=== PATIENT | female | born 1955 | race American Indian/Alaskan Native ===

== ENCOUNTER 2019-10-14 09:50 | Inpatient (IN) | payer OTHER ==
[2019-10-14] MEDS ORDERED: IPRATROPIUM/ALBUTEROL SULFATE 3 ML AMPUL.NEB IH ONE ×4 (09:57→11:28)
--- NOTE | 2019-10-14 11:11 | XRay Report ---
CHEST 2 VIEWS 1045 INDICATION / CLINICAL INFORMATION: SOB, COPD COMPARISON: 01/01/2012 FINDINGS: SUPPORT DEVICES: None. HEART / MEDIASTINUM: No significant abnormality. LUNGS / PLEURA: A band of moderate atelectatic change and possible pneumonitis is seen in the right m iddle lobe. Left lung field is clear. No pleural effusions are noted. No pneumothorax. ADDITIONAL FINDINGS: No significant additional findings. IMPRESSION: Possible right middle lobe pneumonitis. Recommend clinical correlation and follow-up. Signer Name: Pedro Bradley MD Signed: 10/14/2019 11:06 AM Workstation Name: [id number]
[2019-10-14] MEDS ORDERED: methylPREDNISolone Sod Succinate 125 MG/2 ML INJ IV ONE (11:29)
[2019-10-14] MEDS ORDERED: MAGNESIUM SULFATE 2 GM/50 ML BAG IV ONE (11:29)
[2019-10-14 12:11] LABS: Basophils # (Auto) 0.1 K/mm3 (0.0-0.1); Basophils % (Auto) 0.6 % (0.0-1.8); Eosinophils # (Auto) 0.5 K/mm3 (0.0-0.4); Eosinophils % (Auto) 4.5 % (0.0-4.3); Hemoglobin 13.9 gm/dl (10.1-14.3); Lymphocytes # (Auto) 2.2 K/mm3 (1.2-5.4); Lymphocytes % (Auto) 20.4 % (13.4-35.0); Mean Corpuscular HGB Conc 32 % (30-34); Mean Corpuscular Volume 88 fl (79-97); Monocytes # (Auto) 0.8 K/mm3 (0.0-0.8); Monocytes % (Auto) 7.7 % (0.0-7.3); Platelet Count 243 K/mm3 (140-440); Red Cell Distribution Width 14.9 % (13.2-15.2)
--- NOTE | 2019-10-14 12:13 | Emergency Department Report ---
ED Shortness of Breath HPI - General Chief Complaint: Dyspnea/Respdistress Stated Complaint: SOB Time Seen by Provider: 10/14/19 11:23 Source: patient Mode of arrival: Wheelchair Limitations: No Limitations - History of Present Illness Initial Comments: This is a 64-year-old female with a history of COPD. She reports intermittent wheezing for the last week. She states her home neb machine has not been adequate. She is not taking prednisone. She cannot state that she is still on an antibiotic. However she was admitted she states at [facility] the beginning of August for a pneumonia and was treated with antibiotics at that time. She states that her cough is nonproductive. She does not report fever or chills. She states her chest is sore when she coughs only. She denies hemoptysis. She denies any obvious leg pain or swelling. She has not recently travelled. MD Complaint: shortness of breath, "asthma attack" -: week(s) Severity: moderate, severe Quality: dull Consistency: intermittent Improves With: nothing Worsens With: other (Only upon cough) Known History Of: COPD Associated Symptoms: denies other symptoms, chest pain Treatments Prior to Arrival: bronchodilator - Related Data Home Medications Medication Instructions Recorded Confirmed Last Taken ALBUTEROL NEB's 3 ml INHALATION QID 06/14/18 06/14/18 Unknown Acetaminophen with Codeine 1 tab PO Q4H PRN MDD 6 06/14/18 06/14/18 Unknown Benzonatate 2 cap PO TID PRN 06/14/18 06/14/18 Unknown Breo Ellipta 100-25 Mcg INH 25 mcg INHALATION DAILY 06/14/18 06/14/18 Unknown Fluticasone 2 sprays INTRANASAL BID 06/14/18 06/14/18 Unknown Gabapentin 1 cap PO BID 06/14/18 06/15/18 06/13/18 Humalog 5 units SUB-Q AC 06/14/18 06/14/18 Unknown Prednisone 1 tab PO BID 06/14/18 06/14/18 Unknown ProAir HFA Inhaler 1 puff INHALATION PRN PRN 06/14/18 06/14/18 Unknown Simvastatin 1 tab PO HS 06/14/18 06/15/18 06/13/18 Temazepam 1 cap PO HS PRN 06/14/18 06/15/18 06/13/18 Vitamin B12 1 tab PO DAILY 06/14/18 06/14/18 Unknown Vitamin C 1 tab PO DAILY 06/14/18 06/14/18 Unknown Vitamin D (Nf) 1 tab PO DAILY 06/14/18 06/14/18 Unknown amLODIPine 1 tab PO DAILY 06/14/18 06/15/18 06/13/18 hydroCHLOROthiazide 1 tab PO DAILY 06/14/18 06/14/18 06/14/18 lisinopriL [Zestril TAB] 1 tab PO DAILY 06/14/18 06/15/18 06/13/18 metFORMIN 1 tab PO BID 06/14/18 06/15/18 06/13/18 valACYclovir 1 tab PO Q12H 06/14/18 06/15/18 06/13/18 Melatonin 10 mg PO DAILY 06/15/18 06/15/18 06/13/18 Montelukast 10 mg PO HS 06/15/18 06/15/18 06/13/18 Pepcid 20 mg PO BID 06/15/18 06/15/18 06/13/18 Allergies Allergy/AdvReac Type Severity Reaction Status Date / Time No Known Allergies Allergy Verified 06/15/18 07:39 ED Review of Systems ROS: Stated complaint: SOB Other details as noted in HPI Constitutional: denies: chills, fever Eyes: denies: eye pain, eye discharge, vision change ENT: denies: ear pain, throat pain Respiratory: cough, shortness of breath, wheezing Cardiovascular: denies: chest pain, palpitations Endocrine: no symptoms reported Gastrointestinal: denies: abdominal pain, nausea, diarrhea Genitourinary: denies: urgency, dysuria, discharge Musculoskeletal: denies: back pain, joint swelling, arthralgia Skin: denies: rash, lesions Neurological: denies: headache, weakness, paresthesias Psychiatric: denies: anxiety, depression Hematological/Lymphatic: denies: easy bleeding, easy bruising ED Past Medical Hx - Past Medical History Previous Medical History?: Yes Hx Hypertension: Yes Hx Diabetes: Yes Hx Arthritis: Yes Hx Asthma: Yes Hx COPD: Yes - Social History Smoking Status: Former Smoker - Medications Home Medications: Home Medications Medication Instructions Recorded Confirmed Last Taken Type ALBUTEROL NEB's 3 ml INHALATION QID 06/14/18 06/14/18 Unknown History Acetaminophen with Codeine 1 tab PO Q4H PRN MDD 6 06/14/18 06/14/18 Unknown History Benzonatate 2 cap PO TID PRN 06/14/18 06/14/18 Unknown History Breo Ellipta 100-25 Mcg INH 25 mcg INHALATION DAILY 06/14/18 06/14/18 Unknown History Fluticasone 2 sprays INTRANASAL BID 06/14/18 06/14/18 Unknown History Gabapentin 1 cap PO BID 06/14/18 06/15/18 06/13/18 History Humalog 5 units SUB-Q AC 06/14/18 06/14/18 Unknown History Prednisone 1 tab PO BID 06/14/18 06/14/18 Unknown History ProAir HFA Inhaler 1 puff INHALATION PRN PRN 06/14/18 06/14/18 Unknown History Simvastatin 1 tab PO HS 06/14/18 06/15/18 06/13/18 History Temazepam 1 cap PO HS PRN 06/14/18 06/15/18 06/13/18 History Vitamin B12 1 tab PO DAILY 06/14/18 06/14/18 Unknown History Vitamin C 1 tab PO DAILY 06/14/18 06/14/18 Unknown History Vitamin D (Nf) 1 tab PO DAILY 06/14/18 06/14/18 Unknown History amLODIPine 1 tab PO DAILY 06/14/18 06/15/18 06/13/18 History hydroCHLOROthiazide 1 tab PO DAILY 06/14/18 06/14/18 06/14/18 History lisinopriL [Zestril TAB] 1 tab PO DAILY 06/14/18 06/15/18 06/13/18 History metFORMIN 1 tab PO BID 06/14/18 06/15/18 06/13/18 History valACYclovir 1 tab PO Q12H 06/14/18 06/15/18 06/13/18 History Melatonin 10 mg PO DAILY 06/15/18 06/15/18 06/13/18 History Montelukast 10 mg PO HS 06/15/18 06/15/18 06/13/18 History Pepcid 20 mg PO BID 06/15/18 06/15/18 06/13/18 History ED Physical Exam - General Limitations: Physical Limitation General appearance: alert, in no apparent distress - Head Head exam: Present: atraumatic, normocephalic - Eye Eye exam: Present: normal appearance. Absent: scleral icterus - ENT ENT exam: Present: mucous membranes moist - Neck Neck exam: Present: normal inspection. Absent: tenderness, meningismus - Respiratory Respiratory exam: Present: wheezes (Bilateral, noisy rhonchi). Absent: normal lung sounds bilaterally, respiratory distress - Cardiovascular Cardiovascular Exam: Present: regular rate, normal rhythm. Absent: systolic murmur, diastolic murmur, rubs, gallop - GI/Abdominal GI/Abdominal exam: Present: soft, normal bowel sounds. Absent: distended, tenderness, guarding, rebound - Extremities Exam Extremities exam: Present: normal inspection, normal capillary refill. Absent: pedal edema, calf tenderness - Back Exam Back exam: Present: normal inspection - Neurological Exam Neurological exam: Present: alert, oriented X3, CN II-XII intact. Absent: motor sensory deficit - Psychiatric Psychiatric exam: Present: normal affect, anxious - Skin Skin exam: Present: warm, dry, intact, normal color. Absent: rash ED Course Vital Signs 10/14/19 10/14/19 09:53 11:56 Temperature 98.3 F Pulse Rate 76 74 Respiratory 20 26 H Rate Blood Pressure 151/81 Blood Pressure 136/88 [Left] O2 Sat by Pulse 93 96 Oximetry - Reevaluation(s) Reevaluation #1: Chest x-ray shows right middle lobe partial atelectasis cannot exclude pneumonitis. A CT of the chest will be obtained if the patient has reasonable renal function. She is given additional nebs, Solu-Medrol and magnesium. Check labs and monitor progress. 10/14/19 12:13 Reevaluation #2: Patient had a pulse ox of 93% on 2 L. She has substantial persistent wheezing. Discussed with hospitalist. She will be admitted to observation status. 10/14/19 13:24 - EJ/Peripheral Line Neck L Time Out Performed: No Indications: nurses unable to establis Skin Cleansed in Sterile Fashion: Yes Size: 20 Dressing Placed: Tegaderm, tape Patient Tolerated Procedure: well ED Medical Decision Making - Lab Data Result diagrams: 10/14/19 11:48 10/14/19 11:48 Laboratory Results - last 24 hr 10/14/19 10/14/19 10/14/19 11:48 11:48 11:48 WBC 10.7 RBC 4.90 Hgb 13.9 Hct 43.0 H MCV 88 MCH 29 MCHC 32 RDW 14.9 Plt Count 243 Lymph % (Auto) 20.4 Barry % (Auto) 7.7 H Eos % (Auto) 4.5 H Baso % (Auto) 0.6 Lymph # 2.2 Barry # 0.8 Eos # 0.5 H Baso # 0.1 Seg Neutrophils % 66.8 Seg Neutrophils # 7.2 PT 13.0 INR 0.97 APTT 26.0 Sodium 139 Potassium 3.9 Chloride 99.5 Carbon Dioxide 24 Anion Gap 19 BUN 22 H Creatinine 1.0 Estimated GFR > 60 BUN/Creatinine Ratio 22 Glucose 134 H Lactic Acid Calcium 9.9 Total Bilirubin 0.70 Direct Bilirubin < 0.2 AST 27 ALT 25 Alkaline Phosphatase 56 Troponin T < 0.010 NT-Pro-B Natriuret Pep 123.0 Total Protein 7.7 Albumin 4.8 Albumin/Globulin Ratio 1.7 10/14/19 11:48 WBC RBC Hgb Hct MCV MCH MCHC RDW Plt Count Lymph % (Auto) Barry % (Auto) Eos % (Auto) Baso % (Auto) Lymph # Barry # Eos # Baso # Seg Neutrophils % Seg Neutrophils # PT INR APTT Sodium Potassium Chloride Carbon Dioxide Anion Gap BUN Creatinine Estimated GFR BUN/Creatinine Ratio Glucose Lactic Acid 1.50 Calcium Total Bilirubin Direct Bilirubin AST ALT Alkaline Phosphatase Troponin T NT-Pro-B Natriuret Pep Total Protein Albumin Albumin/Globulin Ratio - EKG Data -: EKG Interpreted by Nd EKG shows normal: sinus rhythm, axis, intervals, QRS complexes, ST-T waves Rate: normal - EKG Data Interpretation: no acute changes - Radiology Data Radiology results: report reviewed (RML atelectasis), image reviewed Critical care attestation.: If time is entered above; I have spent that time in minutes in the direct care of this critically ill patient, excluding procedure time. ED Disposition Clinical Impression: COPD exacerbation, Hypoxia, Atelectasis of right lung Disposition: OP ADMIT IP TO THIS HOSP Is pt being admited?: Yes Does the pt Need Aspirin: Yes Condition: Stable Instructions: Chronic Obstructive Pulmonary Disease (ED) Referrals: PRIMARY CARE, [Primary Care Provider] - 3-5 Days Time of Disposition: 13:01
[2019-10-14 12:20] LABS: INR 0.97 (0.87-1.13)
[2019-10-14 12:27] LABS: Alanine Aminotransferase 25 units/L (7-56); Albumin 4.8 g/dL (3.9-5); BUN/Creatinine Ratio 22; Blood Urea Nitrogen 22 mg/dL (7-17); Calcium 9.9 mg/dL (8.4-10.2); Hemolysis Index 2
[2019-10-14 12:33] LABS: Bilirubin,Direct < 0.2 mg/dL (0-0.2)
[2019-10-14] MEDS ORDERED: ASPIRIN 325 MG TAB PO ONE (13:04)
--- NOTE | 2019-10-14 13:47 | Cat Scan Report ---
CT CHEST WITHOUT CONTRAST INDICATION / CLINICAL INFORMATION: Right middle lobe atelectasis consider pneumonia. TECHNIQUE: Axial CT images were obtained through the chest without contrast. All CT scans at this location are p erformed using CT dose reduction for ALARA by means of automated exposure control. COMPARISON: None available. FINDINGS: Complex thyroid mass most consistent with thyroid goiter HEART: No significant abnormality. THORACIC AORTA: No significant abnormality. MEDIASTINUM and ELANA: No significant abnormality. LUNGS: Airspace consolidation with volume loss right middle lobe. Bronchiectasis present within the r ight middle lobe separate from the atelectasis consolidation. Bilateral lower lobe bronchiectasis is present PLEURA: No significant pleural effusion. No pneumothorax. ADDITIONAL FINDINGS: None. UPPER ABDOMEN: No significant abnormality. SKELETAL SYSTEM: Extensive degenerative changes thoracic spine IMPRESSION: 1. Right middle lobe atelectasis-consolidation, endobronchial obstructing lesion should be considered 2. Bronchiectasis right middle lobe and both lower lobes 3. Thyroid goiter 4. Extensive degenerative changes thoracic spine Signer Name: Kishoer Mauricio MD Signed: 10/14/2019 1:43 PM Workstation Name: [id number]
--- NOTE | 2019-10-14 16:08 | History and Physical Report ---
History of Present Illness Date of examination: 10/14/19 Date of admission: 10/14/19 13:24 Chief complaint: Increasing shortness of breath for 1 week History of present illness: 64-year-old female with history of insulin-dependent diabetes, hypertension, hyperlipidemia and COPD comes in for increasing shortness of breath and wheezing for the last 1 week. Not responding to nebulizer treatments at home. Not on any steroids at home and not on any antibiotics at home cough productive of mucoid sputum. Patient was then [facility] at the beginning of J anuary and was discharged. No fever. Intermittent shortness of breath and wheezing. No exacerbating or relieving factors. No chest pain. No recent travel. Past Medical History Previous Medical History?: Yes Hypertension: Yes Diabetes: Yes Arthritis: Yes Asthma: Yes COPD: Yes Surgical history No Family history Htn Social History Smoking Status: Former Smoker - Medications Home Medications: Home Medications Medication Instructions Recorded Confirmed Last Taken Type ALBUTEROL NEB's 3 ml INHALATION QID 06/14/18 06/14/18 Unknown History Acetaminophen with Codeine 1 tab PO Q4H PRN MDD 6 06/14/18 06/14/18 Unknown History Benzonatate 2 cap PO TID PRN 06/14/18 06/14/18 Unknown History Breo Ellipta 100-25 Mcg INH 25 mcg INHALATION DAILY 06/14/18 06/14/18 Unknown History Fluticasone 2 sprays INTRANASAL BID 06/14/18 06/14/18 Unknown History Gabapentin 1 cap PO BID 06/14/18 06/15/18 06/13/18 History Humalog 5 units SUB-Q AC 06/14/18 06/14/18 Unknown History Prednisone 1 tab PO BID 06/14/18 06/14/18 Unknown History ProAir HFA Inhaler 1 puff INHALATION PRN PRN 06/14/18 06/14/18 Unknown History Simvastatin 1 tab PO HS 06/14/18 06/15/18 06/13/18 History Temazepam 1 cap PO HS PRN 06/14/18 06/15/18 06/13/18 History Vitamin B12 1 tab PO DAILY 06/14/18 06/14/18 Unknown History Vitamin C 1 tab PO DAILY 06/14/18 06/14/18 Unknown History Vitamin D (Nf) 1 tab PO DAILY 06/14/18 06/14/18 Unknown History amLODIPine 1 tab PO DAILY 06/14/18 06/15/18 06/13/18 History hydroCHLOROthiazide 1 tab PO DAILY 06/14/18 06/14/18 06/14/18 History lisinopriL [Zestril TAB] 1 tab PO DAILY 06/14/18 06/15/18 06/13/18 History metFORMIN 1 tab PO BID 06/14/18 06/15/18 06/13/18 History valACYclovir 1 tab PO Q12H 06/14/18 06/15/18 06/13/18 History Melatonin 10 mg PO DAILY 06/15/18 06/15/18 06/13/18 History Montelukast 10 mg PO HS 06/15/18 06/15/18 06/13/18 History Pepcid 20 mg PO BID 06/15/18 06/15/18 06/13/18 History Review of Systems ROS: Stated complaint: SOB Other details as noted in HPI Constitutional: denies: chills, fever Eyes: denies: eye pain, eye discharge, vision change ENT: denies: ear pain, throat pain Respiratory: cough, shortness of breath, wheezing Cardiovascular: denies: chest pain, palpitations Endocrine: no symptoms reported Gastrointestinal: denies: abdominal pain, nausea, diarrhea Genitourinary: denies: urgency, dysuria, discharge Musculoskeletal: denies: back pain, joint swelling, arthralgia Skin: denies: rash, lesions Neurological: denies: headache, weakness, paresthesias Psychiatric: denies: anxiety, depression Hematological/Lymphatic: denies: easy bleeding, easy bruising Medications and Allergies Allergies Allergy/AdvReac Type Severity Reaction Status Date / Time No Known Allergies Allergy Verified 06/15/18 07:39 Home Medications Medication Instructions Recorded Confirmed Last Taken Type ALBUTEROL NEB's 3 ml INHALATION QID 06/14/18 10/14/19 Unknown History Humalog 5 units SUB-Q AC 06/14/18 10/14/19 Unknown History ProAir HFA Inhaler 1 puff INHALATION PRN PRN 06/14/18 10/14/19 Unknown History Simvastatin 1 tab PO HS 06/14/18 10/14/19 06/13/18 History Temazepam 1 cap PO HS PRN 06/14/18 10/14/19 06/13/18 History Vitamin B12 1 tab PO DAILY 06/14/18 10/14/19 Unknown History amLODIPine 1 tab PO DAILY 06/14/18 10/14/19 06/13/18 History hydroCHLOROthiazide 1 tab PO DAILY 06/14/18 10/14/19 06/14/18 History metFORMIN 1 tab PO BID 06/14/18 10/14/19 06/13/18 History valACYclovir 1 tab PO QDAY 06/14/18 10/14/19 06/13/18 History Aspirin [Aspirin BABY CHEW TAB] 81 mg PO QDAY 10/14/19 10/14/19 Unknown History Gabapentin [Neurontin] 800 mg PO BID 10/14/19 10/14/19 Unknown History HYDROcodone/APAP 5-325 5 mg PO Q6H PRN 10/14/19 10/14/19 Unknown History Prednisone [predniSONE (Shante) ER 10 mg PO QDAY 10/14/19 10/14/19 Unknown H istory TAB] Clopidogrel [Plavix] 75 mg PO QDAY 10/15/19 10/15/19 Unknown History Exam - Constitutional Vitals: Temp Pulse Resp BP Pulse Ox 98.3 F 81 15 113/66 95 10/14/19 09:53 10/14/19 13:45 10/14/19 13:45 10/14/19 13:45 10/14/19 13:45 General appearance: Present: mild distress, well-nourished - EENT Eyes: Present: PERRL ENT: hearing intact, clear oral mucosa - Neck Neck: Present: supple, normal ROM - Respiratory Respiratory effort: normal Respiratory: bilateral: diminished, rhonchi, wheezing - Cardiovascular Heart rate: 80 Rhythm: regular (78) Heart Sounds: Present: S1 & S2. Absent: rub, click - Extremities Extremities: no ischemia, pulses intact, pulses symmetrical, No edema Peripheral Pulses: within normal limits - Abdominal General gastrointestinal: Present: soft, non-tender, non-distended, normal bowel sounds Female genitourinary: Present: normal - Rectal Rectal Exam: deferred - Integumentary Integumentary: Present: clear, warm, dry - Musculoskeletal Musculoskeletal: gait normal, strength equal bilaterally - Psychiatric Psychiatric: appropriate mood/affect, intact judgment & insight - Neurologic Neurologic: CNII-XII intact, moves all extremities - Allied Health Allied health notes reviewed: nursing, case management Results - Labs CBC & Chem 7: 10/14/19 11:48 10/14/19 11:48 Labs: Laboratory Last Values WBC 10.7 K/mm3 (4.5-11.0) 10/14/19 11:48 RBC 4.90 M/mm3 (3.65-5.03) 10/14/19 11:48 Hgb 13.9 gm/dl (10.1-14.3) 10/14/19 11:48 Hct 43.0 % (30.3-42.9) H 10/14/19 11:48 MCV 88 fl (79-97) 10/14/19 11:48 MCH 29 pg (28-32) 10/14/19 11:48 MCHC 32 % (30-34) 10/14/19 11:48 RDW 14.9 % (13.2-15.2) 10/14/19 11:48 Plt Count 243 K/mm3 (140-440) 10/14/19 11:48 Lymph % (Auto) 20.4 % (13.4-35.0) 10/14/19 11:48 [place]osa % (Auto) 7.7 % (0.0-7.3) H 10/14/19 11:48 Eos % (Auto) 4.5 % (0.0-4.3) H 10/14/19 11:48 Baso % (Auto) 0.6 % (0.0-1.8) 10/14/19 11:48 Lymph # 2.2 K/mm3 (1.2-5.4) 10/14/19 11:48 [place]osa # 0.8 K/mm3 (0.0-0.8) 10/14/19 11:48 Eos # 0.5 K/mm3 (0.0-0.4) H 10/14/19 11:48 Baso # 0.1 K/mm3 (0.0-0.1) 10/14/19 11:48 Seg Neutrophils % 66.8 % (40.0-70.0) 10/14/19 11:48 Seg Neutrophils # 7.2 K/mm3 (1.8-7.7) 10/14/19 11:48 PT 13.0 Sec. (12.2-14.9) 10/14/19 11:48 INR 0.97 (0.87-1.13) 10/14/19 11:48 APTT 26.0 Sec. (24.2-36.6) 10/14/19 11:48 Sodium 139 mmol/L (137-145) 10/14/19 11:48 Potassium 3.9 mmol/L (3.6-5.0) 10/14/19 11:48 Chloride 99.5 mmol/L (98-107) 10/14/19 11:48 Carbon Dioxide 24 mmol/L (22-30) 10/14/19 11:48 Anion Gap 19 mmol/L 10/14/19 11:48 BUN 22 mg/dL (7-17) H 10/14/19 11:48 Creatinine 1.0 mg/dL (0.7-1.2) 10/14/19 11:48 Estimated GFR > 60 ml/min 10/14/19 11:48 BUN/Creatinine Ratio 22 % 10/14/19 11:48 Glucose 134 mg/dL (65-100) H 10/14/19 11:48 Lactic Acid 1.50 mmol/L (0.7-2.0) 10/14/19 11:48 Calcium 9.9 mg/dL (8.4-10.2) 10/14/19 11:48 Total Bilirubin 0.70 mg/dL (0.1-1.2) 10/14/19 11:48 Direct Bilirubin < 0.2 mg/dL (0-0.2) 10/14/19 11:48 AST 27 units/L (5-40) 10/14/19 11:48 ALT 25 units/L (7-56) 10/14/19 11:48 Alkaline Phosphatase 56 units/L (35-129) 10/14/19 11:48 Troponin T < 0.010 ng/mL (0.00-0.029) 10/14/19 11:48 NT-Pro-B Natriuret Pep 123.0 pg/mL (0-900) 10/14/19 11:48 Total Protein 7.7 g/dL (6.3-8.2) 10/14/19 11:48 Albumin 4.8 g/dL (3.9-5) 10/14/19 11:48 Albumin/Globulin Ratio 1.7 % 02/23/20 11:48 - Imaging and Cardiology EKG: report reviewed (Sinus rhythm heart rate of 81/min) Chest x-ray: report reviewed Imaging and Cardiology: Chest x-ray IMPRESSION: Possible right middle lobe pneumonitis. Recommend clinical correlation and follow-up. CT chest IMPRESSION: 1. Right middle lobe atelectasis-consolidation, endobronchial obstructing lesion should be considered 2. Bronchiectasis right middle lobe and both lower lobes 3. Thyroid goiter 4. Extensive degenerative changes thoracic spine Signer Name: Kishore Mauricio MD Signed: 10/14/2019 1:43 PM Workstation Name: Guide Financial Assessment and Plan Assessment and plan: Endobronchial lesion Pulmonary consult requested Possible bronchoscopy as inpatient or outpatient Advance Directives: Yes (Full code) VTE prophylaxis?: Chemical Plan of care discussed with patient/family: Yes - Patient Problems (1) Acute respiratory failure Current Visit: Yes Status: Acute Qualifiers: Respiratory failure complication: hypoxia Qualified Code(s): J96.01 - Acute respiratory failure with hypoxia Plan to address problem: Patient was hypoxic at the time of admission to the emergency room. Patient was hypoxic and severely tachypneic at the time of admission to the emergency room ABG pending Patient was tachypneic at rate of 26/min with prominent accessory muscles of respiration Oxygen saturations borderline around 88-92. IV steroids IV antibiotics and duo nebulizers restarted [id number] and every 3 as needed (2) Right middle lobe pneumonia Current Visit: Yes Status: Acute Plan to address problem: Patient initiated on IV ceftriaxone and IV Zithromax (3) COPD exacerbation Current Visit: Yes Status: Acute Plan to address problem: Patient initiated on nebulizer treatments IV steroids and IV antibiotics Continue Breo and the fluticasone, pro-air and Singulair. 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 Plan to address problem: Continue insulin and metformin Coverage Check hemoglobin A1c (6) Hyperlipidemia Current Visit: Yes Status: Chronic Qualifiers: Hyperlipidemia type: unspecified Qualified Code(s): E78.5 - Hyperlipidemia, unspecified Plan to address problem: Continue statins in the form of simvastatin (7) GERD (gastroesophageal reflux disease) Current Visit: Yes Status: Chronic Qualifiers: Esophagitis presence: without esophagitis Qualified Code(s): K21.9 - Gastro-esophageal reflux disease without esophagitis Plan to address problem: Continue Pepcid (8) Peripheral neuropathy Current Visit: Yes Status: Chronic Qualifiers: Peripheral neuropathy type: polyneuropathy, unspecified Qualified Code(s): G62.9 - Polyneuropathy, unspecified Plan to address problem: Continue gabapentin (9) DVT prophylaxis Current Visit: Yes Status: Acute Plan to address problem: On heparin and GI prophylaxis Physician certification Admitted in inpatient status Because of the right middle lobe pneumonia respiratory failure and COPD exacerbation patient admitted as inpatient status. Probable admission for 48 to 96 hours
[2019-10-14 16:36] LABS: Bilirubin,Urine NEG (Negative); Blood,Urine NEG (Negative); Color,Urine Yellow (Yellow); Mucus,Urine FEW /HPF; Protein,Urine <15 mg/dL mg/dL (Negative); Urobilinogen,Urine < 2.0 mg/dL (<2.0)
[2019-10-14] MEDS ORDERED: PROAIR INHALATION PRN (16:42)
[2019-10-14] MEDS ORDERED: HYDROCHLOROTHIAZIDE PO SCH (16:45)
[2019-10-14] MEDS ORDERED: BREO ELLIPTA INHALATION SCH (16:45)
[2019-10-14] MEDS ORDERED: AMLODIPINE PO SCH (16:45)
[2019-10-14] MEDS ORDERED: ALBUTEROL 2.5 MG/3 ML NEBU IH PRN ×2 (16:56→17:42)
[2019-10-14] MEDS ORDERED: LISINOPRIL 40 MG TAB PO SCH ×2 (17:00→18:24)
[2019-10-14] MEDS: amLODIPine 10 MG TAB PO SCH (18:20)
[2019-10-14] MEDS: hydroCHLOROthiazide 25 MG TAB PO SCH (18:20)
[2019-10-14] MEDS: metFORMIN 500 MG TAB PO SCH (18:20)
[2019-10-14] MEDS ORDERED: ACETAMINOPHEN 325 MG TAB PO PRN (18:21)
[2019-10-14] MEDS ORDERED: ONDANSETRON 4 MG/2 ML INJ IV PRN (18:21)
[2019-10-14] MEDS ORDERED: HYDROmorphone 1 MG/1 ML INJ IV PRN (18:22)
[2019-10-14] MEDS ORDERED: oxyCODONE /ACETAMINOPHEN 5-325MG TAB PO PRN (18:22)
[2019-10-14] MEDS ORDERED: IPRATROPIUM/ALBUTEROL SULFATE 3 ML AMPUL.NEB IH PRN (18:24)
[2019-10-14] MEDS ORDERED: SODIUM CHLORIDE 0.9% 1000 ML 1,000 ML IV SCH (18:30)
[2019-10-14] MEDS ORDERED: LISINOPRIL 20 MG TAB PO SCH (19:00)
[2019-10-14] MEDS ORDERED: IPRATROPIUM/ALBUTEROL SULFATE 3 ML AMPUL.NEB IH SCH (20:00)
[2019-10-14] MEDS: cefTRIAXone/NS 2 GM/100 ML 2 GM/100 ML BAG IV SCH (21:09)
[2019-10-14] MEDS: AZITHROMYCIN 500 MG in SODIUM CHLORIDE 0.9% 250ML 250 ML IV SCH (21:10)
[2019-10-14] MEDS: IPRATROPIUM/ALBUTEROL SULFATE 3 ML AMPUL.NEB IH SCH (21:44)
[2019-10-14] MEDS: ARFORMOTEROL 15 MCG/2 ML NEBU IH SCH (21:44)
[2019-10-14] MEDS: BUDESONIDE 0.5 MG/2 ML NEBU IH SCH (21:50)
[2019-10-14] MEDS ORDERED: GABAPENTIN PO SCH (22:00)
[2019-10-14] MEDS ORDERED: NON-FORMULARY EACH (Montelukast 10 MG) PO SCH (22:00)
[2019-10-14] MEDS ORDERED: SIMVASTATIN PO SCH (22:00)
[2019-10-14] MEDS ORDERED: FLUTICASONE INTRANASAL SCH (22:00)
[2019-10-14] MEDS ORDERED: METFORMIN PO SCH (22:00)
[2019-10-14] MEDS ORDERED: NON-FORMULARY EACH (Gabapentin [Neurontin] 800 MG) PO SCH (22:00)
[2019-10-14] MEDS ORDERED: PEPCID 20 MG PO SCH (22:00)
[2019-10-14] MEDS: PRAVASTATIN 40 MG TAB PO SCH (22:24)
[2019-10-14] MEDS: MELATONIN 5 MG TAB PO SCH ×2 (22:24→23:00)
[2019-10-14] MEDS: methylPREDNISolone Sod Succinate 125 MG/2 ML INJ IV SCH (22:25)
[2019-10-14] MEDS: GABAPENTIN 400 MG CAP PO SCH (22:25)
[2019-10-14] MEDS: MONTELUKAST 10 MG TAB PO SCH (22:25)
[2019-10-14] MEDS: FAMOTIDINE 20 MG TAB PO SCH ×2 (22:25→22:59)
[2019-10-14] MEDS: INSULIN LISPRO 100 UNIT/ML SUB-Q SCH (22:33)
[2019-10-15] MEDS: IPRATROPIUM/ALBUTEROL SULFATE 3 ML AMPUL.NEB IH SCH ×4 (02:37→20:25)
[2019-10-15] MEDS: methylPREDNISolone Sod Succinate 125 MG/2 ML INJ IV SCH ×4 (06:17→23:54)
[2019-10-15] MEDS ORDERED: HUMALOG SUB-Q SCH (07:30)
[2019-10-15] MEDS: BUDESONIDE 0.5 MG/2 ML NEBU IH SCH ×2 (08:21→20:25)
[2019-10-15] MEDS: ARFORMOTEROL 15 MCG/2 ML NEBU IH SCH ×2 (08:21→20:25)
--- NOTE | 2019-10-15 08:38 | Progress Note ---
Assessment and Plan Assessment and plan: 64-year-old female with history of insulin-dependent diabetes, hypertension, hyperlipidemia and COPD comes in for increasing shortness of breath and wheezing for the last 1 week. Not responding to nebulizer treatments at home. Not on any steroids at home and not on any antibiotics at home cough productive of mucoid sputum. Patient was then [facility] at the beginning of August and was discharged. No fever. Intermittent shortness of breath and wheezing. No exacerbating or relieving factors. No chest pain. No recent travel. CXR IMPRESSION: 1. Right middle lobe atelectasis-consolidation, endobronchial obstructing lesion should be considered 2. Bronchiectasis right middle lobe and both lower lobes 3. Thyroid goiter 4. Extensive degenerative changes thoracic spine Possible Endobronchial lesions Acute Respiratory failure likely secondary to pneumonia vs COPD exacerbation vs Endobronchial lesions COPD Exacerbation Hypertension Diabetes Mellitus Hyperlipidemia Peripheral Neuropathy GERD Plan Continue supporitve care At time of admission patient was tachypenia at at rate of 26 breaths per min with saturation of 88% ABG Discussed with Pulmonary, may need Bronchoscopy as patient is being readmitted following recent stay at a local hospital Patient initiated on IV ceftriaxone and IV Zithromax Patient initiated on nebulizer treatments IV steroids and IV antibiotics Continue Breo and the fluticasone, pro-air and Singulair. Continue insulin and metformin Coverage Check hemoglobin A1c Continue statins in the form of simvastatin Continue Pepcid Continue gabapentin DVT/GI prophy History Interval history: Patient seen and examined, continues with wheezing, quit audible from the room even without a stethoscope. Still with some exceptional dyspnea Hospitalist Physical - Physical exam Narrative exam: VITAL SIGNS: Reviewed. GENERAL: The patient appears normally developed, Vital signs as documented. HEAD: No signs of head trauma. EYES: Pupils are equal. Extraocular motions intact. EARS: Hearing grossly intact. MOUTH: Oropharynx is normal. NECK: No adenopathy, no JVD. CHEST: Chest with Audible Wheezing, inspiratory more than expiratory breath sounds bilaterally. CARDIAC: Regular rate and rhythm. S1 and S2, without murmurs, gallops, or rubs. VASCULAR: No Edema. Peripheral pulses normal and equal in all extremities. ABDOMEN: Soft, non tender and non distended. No rebound or guarding, and no masses palpated. Bowel Sounds normal. MUSCULOSKELETAL: Good range of motion of all major joints. Extremities without clubbing, cyanosis or edema. NEUROLOGIC EXAM: Alert and oriented x 3 No focal sensory or strength deficits. Speech normal. Follows commands. PSYCHIATRIC: Mood normal. SKIN: detail exam as documented in skin assessment - Constitutional Vitals: Temp Pulse Resp BP Pulse Ox 97.8 F 72 24 149/88 95 10/15/19 05:08 10/15/19 05:08 10/15/19 05:08 10/15/19 05:08 10/15/19 05:08 General appearance: Present: mild distress, well-nourished Results - Labs CBC & Chem 7: 10/14/19 11:48 10/14/19 11:48 Labs: Laboratory Last Values WBC 10.7 K/mm3 (4.5-11.0) 10/14/19 11:48 RBC 4.90 M/mm3 (3.65-5.03) 10/14/19 11:48 Hgb 13.9 gm/dl (10.1-14.3) 10/14/19 11:48 Hct 43.0 % (30.3-42.9) H 10/14/19 11:48 MCV 88 fl (79-97) 10/14/19 11:48 MCH 29 pg (28-32) 10/14/19 11:48 MCHC 32 % (30-34) 10/14/19 11:48 RDW 14.9 % (13.2-15.2) 10/14/19 11:48 Plt Count 243 K/mm3 (140-440) 10/14/19 11:48 Lymph % (Auto) 20.4 % (13.4-35.0) 10/14/19 11:48 Carson % (Auto) 7.7 % (0.0-7.3) H 10/14/19 11:48 Eos % (Auto) 4.5 % (0.0-4.3) H 10/14/19 11:48 Baso % (Auto) 0.6 % (0.0-1.8) 10/14/19 11:48 Lymph # 2.2 K/mm3 (1.2-5.4) 10/14/19 11:48 Carson # 0.8 K/mm3 (0.0-0.8) 10/14/19 11:48 Eos # 0.5 K/mm3 (0.0-0.4) H 10/14/19 11:48 Baso # 0.1 K/mm3 (0.0-0.1) 10/14/19 11:48 Seg Neutrophils % 66.8 % (40.0-70.0) 10/14/19 11:48 Seg Neutrophils # 7.2 K/mm3 (1.8-7.7) 10/14/19 11:48 PT 13.0 Sec. (12.2-14.9) 10/14/19 11:48 INR 0.97 (0.87-1.13) 10/14/19 11:48 APTT 26.0 Sec. (24.2-36.6) 10/14/19 11:48 Sodium 139 mmol/L (137-145) 10/14/19 11:48 Potassium 3.9 mmol/L (3.6-5.0) 10/14/19 11:48 Chloride 99.5 mmol/L (98-107) 10/14/19 11:48 Carbon Dioxide 24 mmol/L (22-30) 10/14/19 11:48 Anion Gap 19 mmol/L 10/14/19 11:48 BUN 22 mg/dL (7-17) H 10/14/19 11:48 Creatinine 1.0 mg/dL (0.7-1.2) 10/14/19 11:48 Estimated GFR > 60 ml/min 10/14/19 11:48 BUN/Creatinine Ratio 22 % 10/14/19 11:48 Glucose 134 mg/dL (65-100) H 10/14/19 11:48 POC Glucose 198 (70-105) H 10/15/19 08:16 Lactic Acid 1.50 mmol/L (0.7-2.0) 10/14/19 11:48 Calcium 9.9 mg/dL (8.4-10.2) 10/14/19 11:48 Total Bilirubin 0.70 mg/dL (0.1-1.2) 10/14/19 11:48 Direct Bilirubin < 0.2 mg/dL (0-0.2) 10/14/19 11:48 AST 27 units/L (5-40) 10/14/19 11:48 ALT 25 units/L (7-56) 10/14/19 11:48 Alkaline Phosphatase 56 units/L (35-129) 10/14/19 11:48 Troponin T < 0.010 ng/mL (0.00-0.029) 10/14/19 11:48 NT-Pro-B Natriuret Pep 123.0 pg/mL (0-900) 10/14/19 11:48 Total Protein 7.7 g/dL (6.3-8.2) 10/14/19 11:48 Albumin 4.8 g/dL (3.9-5) 10/14/19 11:48 Albumin/Globulin Ratio 1.7 % 10/14/19 11:48 Urine Color Yellow (Yellow) 10/14/19 16:22 Urine Turbidity Clear (Clear) 10/14/19 16:22 Urine pH 5.0 (5.0-7.0) 10/14/19 16:22 Ur Specific [place] 1.015 (1.003-1.030) 10/14/19 16:22 Urine Protein <15 mg/dl mg/dL (Negative) 10/14/19 16:22 Urine Glucose (UA) >=500 mg/dL (Negative) 10/14/19 16:22 Urine Ketones Neg mg/dL (Negative) 10/14/19 16:22 Urine Blood Neg (Negative) 10/14/19 16:22 Urine Nitrite Neg (Negative) 10/14/19 16:22 Urine Bilirubin Neg (Negative) 10/14/19 16:22 Urine Urobilinogen < 2.0 mg/dL (<2.0) 10/14/19 16:22 Ur Leukocyte Esterase Neg (Negative) 10/14/19 16:22 Urine WBC (Auto) 1.0 /HPF (0.0-6.0) 10/14/19 16:22 Urine RBC (Auto) 2.0 /HPF (0.0-6.0) 10/14/19 16:22 U Epithel Cells (Auto) 5.0 /HPF (0-13.0) 10/14/19 16:22 Urine Mucus Few /HPF 10/14/19 16:22 Active Medications - Current Medications Current Medications: Generic Name Dose Route Start Last Admin Trade Name Freq PRN Reason Stop Dose Admin Acetaminophen 650 mg 10/14/19 18:21 Tylenol PO Q4H PRN Pain MILD(1-3)/Fever >100.5/WARD Albuterol 2.5 mg 10/14/19 17:42 Proventil IH Q4H PRN Wheezing Albuterol/Ipratropium 1 ampul 10/14/19 20:00 10/15/19 08:22 Duoneb *Not For Prn Use* IH Not Given Q6HRT ESTEVAN Albuterol/Ipratropium 1 ampul 10/14/19 18:24 Duoneb *Not For Prn Use* IH Q3H PRN Wheezing Amlodipine Besylate 10 mg 10/14/19 18:00 10/14/19 18:20 Amlodipine PO 10 mg DAILY ESTEVAN Administration Arformoterol Tartrate 15 mcg 10/14/19 20:00 10/15/19 08:21 Brovana Nebu IH 15 mcg Q12HRT ESTEVAN Administration Ascorbic Acid 500 mg 10/15/19 10:00 Vitamin C PO QDAY [facility] Aspirin 81 mg 10/15/19 10:00 Baby Aspirin PO QDAY ESTEVAN Budesonide 0.5 mg 10/14/19 20:00 10/15/19 08:21 Pulmicort IH 0.5 mg Q12HRT ESTEVAN Administration Cholecalciferol 1,000 unit 10/15/19 10:00 Vitamin D3 PO DAILY [facility] Cyanocobalamin 100 mcg 10/15/19 10:00 Vitamin B-12 PO QDAY [facility] Famotidine 20 mg 10/14/19 22:00 10/14/19 22:59 Pepcid PO Not Given BID [facility] Fluticasone Propionate 100 mcg 10/15/19 10:00 Flonase NS QDAY ESTEVAN Gabapentin 800 mg 10/14/19 22:00 10/14/19 22:25 Gabapentin PO 800 mg BID ESTEVAN Administration Hydrochlorothiazide 25 mg 10/14/19 18:00 10/14/19 18:20 Hctz PO 25 mg QDAY ESTEVAN Administration Hydromorphone HCl 0.5 mg 10/14/19 18:22 Dilaudid IV Q3H PRN Pain , Severe (7-10) Sodium Chloride 1,000 mls @ 75 mls/hr 10/14/19 18:30 10/14/19 22:48 Nacl 0.9% 1000 Ml IV 10/15/19 11:00 75 mls/hr DIRECT ESTEVAN Administration Ceftriaxone Sodium 2 gm in 100 mls @ 200 mls/hr 10/14/19 19:30 10/14/19 22:56 Rocephin/Ns 2 Gm/100 Ml IV Infused Q24H EST[facility]AN Infusion Protocol Azithromycin 500 mg/ Sodium 250 mls @ 250 mls/hr 10/14/19 20:00 10/14/19 22:57 Chloride IV Infused Q24H ESTEVAN Infusion Protocol Insulin Human Lispro 0 unit 10/14/19 22:00 10/14/19 22:33 Humalog SUB-Q 3 unit ACHS ESTEVAN Administration Protocol Insulin Human Lispro 5 unit 10/15/19 07:30 Humalog SUB-Q AC ESTEVAN Melatonin 10 mg 10/14/19 22:00 10/14/19 23:00 Melatonin PO Not Given QHS ESTEVAN Metformin HCl 500 mg 10/14/19 18:00 10/14/19 18:20 Glucophage PO 500 mg BIDDIAB ESTEVAN Administration Methylprednisolone Sodium Succinate 125 mg 10/14/19 22:00 10/15/19 06:17 Solu-Medrol IV 125 mg Q8HR ESTEVAN Administration Montelukast Sodium 10 mg 10/14/19 22:00 10/14/19 22:25 Singulair PO 10 mg QHS ESTEVAN Administration Ondansetron HCl 4 mg 10/14/19 18:21 Zofran IV Q8H PRN Nausea And Vomiting Oxycodone/Acetaminophen 1 tab 10/14/19 18:22 Percocet 5/325 PO Q6H PRN Pain, Moderate (4-6) Pravastatin Sodium 40 mg 10/14/19 22:00 10/14/19 22:24 Pravachol PO 40 mg QHS ESTEVAN Administration Sodium Chloride 10 ml 10/14/19 22:00 10/14/19 22:26 Sodium Chloride Flush Syringe 10 Ml IV 10 ml BID ESTEVAN Administration Sodium Chloride 10 ml 10/14/19 18:21 Sodium Chloride Flush Syringe 10 Ml IV PRN PRN LINE FLUSH
[2019-10-15] MEDS: INSULIN LISPRO 100 UNIT/ML SUB-Q SCH ×7 (08:50→23:32)
[2019-10-15] MEDS: metFORMIN 500 MG TAB PO SCH ×2 (08:50→18:18)
[2019-10-15] MEDS: ASCORBIC ACID 500 MG TAB PO SCH (09:50)
[2019-10-15] MEDS: FAMOTIDINE 20 MG TAB PO SCH ×2 (09:50→23:34)
[2019-10-15] MEDS: CYANOCOBALAMIN (VIT B-12) 100 MCG TAB PO SCH (09:50)
[2019-10-15] MEDS: CHOLECALCIFEROL (VIT D3) 1000 UNIT (25 mcg) TAB PO SCH (09:50)
[2019-10-15] MEDS: amLODIPine 10 MG TAB PO SCH (09:50)
[2019-10-15] MEDS: hydroCHLOROthiazide 25 MG TAB PO SCH (09:50)
[2019-10-15] MEDS: GABAPENTIN 400 MG CAP PO SCH ×2 (09:50→23:31)
[2019-10-15] MEDS: ASPIRIN 81 MG TAB CHEW PO SCH (09:51)
[2019-10-15] MEDS: FLUTICASONE PROPIONATE NASAL SPRAY 16 GM NS SCH (09:51)
[2019-10-15] MEDS ORDERED: VITAMIN C PO SCH (10:00)
[2019-10-15] MEDS ORDERED: VITAMIN D PO SCH (10:00)
[2019-10-15] MEDS ORDERED: NON-FORMULARY EACH (Melatonin 10 MG) PO SCH (10:00)
[2019-10-15] MEDS ORDERED: VITAMIN B12 PO SCH (10:00)
--- NOTE | 2019-10-15 15:07 | Consultation ---
History of Present Illness Consult date: 10/15/19 Requesting physician: ISAAC REED Reason for consult: COPD, abnormal CXR/CT History of present illness: 64 y/o smoker, who normally goes to [facility] for her care presents with worsening shortness of breath. Was admitted 08/23/2019 at [facility] for [facility]. Discharged and the followed up with PCP who states she had left lower lobe pneumonia and prescribed erythromycin but she did not take it. Presents here w ith RML consolidation vs collapse on CXR and then confirmed consolidation on CT. Does have bronchiectasis in that lobe as well as bilateral lower lobes. Rads concerned about endobronchial lesion as well. Patient denies weight loss. No hemoptysis. Past History Past Medical History: diabetes, hypertension, hyperlipidemia, other (anxiety, former crack abuser) Social history: smoking Medications and Allergies Allergies Allergy/AdvReac Type Severity Reaction Status Date / Time No Known Allergies Allergy Verified 06/15/18 07:39 Home Medications Medication Instructions Recorded Confirmed Last Taken Type ALBUTEROL NEB's 3 ml INHALATION QID 06/14/18 10/14/19 Unknown History Humalog 5 units SUB-Q AC 06/14/18 10/14/19 Unknown History ProAir HFA Inhaler 1 puff INHALATION PRN PRN 06/14/18 10/14/19 Unknown History Simvastatin 1 tab PO HS 06/14/18 10/14/19 06/13/18 History Temazepam 1 cap PO HS PRN 06/14/18 10/14/19 06/13/18 History Vitamin B12 1 tab PO DAILY 06/14/18 10/14/19 Unknown History amLODIPine 1 tab PO DAILY 06/14/18 10/14/19 06/13/18 History hydroCHLOROthiazide 1 tab PO DAILY 06/14/18 10/14/19 06/14/18 History metFORMIN 1 tab PO BID 06/14/18 10/14/19 06/13/18 History valACYclovir 1 tab PO QDAY 06/14/18 10/14/19 06/13/18 History Aspirin [Aspirin BABY CHEW TAB] 81 mg PO QDAY 10/14/19 10/14/19 Unknown History Gabapentin [Neurontin] 800 mg PO BID 10/14/19 10/14/19 Unknown History HYDROcodone/APAP 5-325 5 mg PO Q6H PRN 10/14/19 10/14/19 Unknown History Prednisone [predniSONE (Shante) ER 10 mg PO QDAY 10/14/19 10/14/19 Unknown History TAB] Clopidogrel [Plavix] 75 mg PO QDAY 10/15/19 10/15/19 Unknown History Active Meds: Active Medications Acetaminophen (Tylenol) 650 mg PO Q4H PRN PRN Reason: Pain MILD(1-3)/Fever >100.5/WARD Albuterol (Proventil) 2.5 mg IH Q4H PRN PRN Reason: Wheezing Albuterol/Ipratropium (Duoneb *Not For Prn Use*) 1 ampul IH Q6HRT [facility] Last Admin: 10/15/19 13:28 Dose: 1 ampul Documented by: Albuterol/Ipratropium (Duoneb *Not For Prn Use*) 1 ampul IH Q3H PRN PRN Reason: Wheezing Amlodipine Besylate (Amlodipine) 10 mg PO DAILY [facility] Last Admin: 10/15/19 09:50 Dose: 10 mg Documented by: Arformoterol Tartrate (Brovana Nebu) 15 mcg IH Q12HRT [facility] Last Admin: 10/15/19 08:21 Dose: 15 mcg Documented by: Ascorbic Acid (Vitamin C) 500 mg PO QDAY [facility] Last Admin: 10/15/19 09:50 Dose: 500 mg Documented by: Aspirin (Baby Aspirin) 81 mg PO QDAY [facility] Last Admin: 10/15/19 09:51 Dose: 81 mg Documented by: Budesonide (Pulmicort) 0.5 mg IH Q12HRT [facility] Last Admin: 10/15/19 08:21 Dose: 0.5 mg Documented by: Cholecalciferol (Vitamin D3) 1,000 unit PO DAILY [facility] Last Admin: 10/15/19 09:50 Dose: 1,000 unit Documented by: Cyanocobalamin (Vitamin B-12) 100 mcg PO QDAY [facility] Last Admin: 10/15/19 09:50 Dose: 100 mcg Documented by: Famotidine (Pepcid) 20 mg PO BID [facility] Last Admin: 10/15/19 09:50 Dose: 20 mg Documented by: Fluticasone Propionate (Flonase) 100 mcg NS QDAY [facility] Last Admin: 10/15/19 09:51 Dose: Not Given Documented by: Gabapentin (Gabapentin) 800 mg PO BID [facility] Last Admin: 10/15/19 09:50 Dose: 800 mg Documented by: Hydrochlorothiazide (Hctz) 25 mg PO QDAY [facility] Last Admin: 10/15/19 09:50 Dose: 25 mg Documented by: Hydromorphone HCl (Dilaudid) 0.5 mg IV Q3H PRN PRN Reason: Pain , Severe (7-10) Ceftriaxone Sodium (Rocephin/Ns 2 Gm/100 Ml) 2 gm in 100 mls @ 200 mls/hr IV Q24H [facility]; Protocol Last Infusion: 10/14/19 22:56 Dose: Infused Documented by: Azithromycin 500 mg/ Sodium (Chloride) 250 mls @ 250 mls/hr IV Q24H [facility]; Protocol Last Infusion: 10/14/19 22:57 Dose: Infused Documented by: Insulin Human Lispro (Humalog) 0 unit SUB-Q [facility]; Protocol Last Admin: 10/15/19 12:30 Dose: Not Given Documented by: Insulin Human Lispro (Humalog) 5 unit SUB-Q [facility] Last Admin: 10/15/19 12:29 Dose: 5 unit Documented by: Melatonin (Melatonin) 10 mg PO QHS [facility] Last Admin: 10/14/19 23:00 Dose: Not Given Documented by: Metformin HCl (Glucophage) 500 mg PO BIDDIAB [facility] Last Admin: 10/15/19 08:50 Dose: 500 mg Documented by: Methylprednisolone Sodium Succinate (Solu-Medrol) 125 mg IV Q8HR [facility] Last Admin: 10/15/19 14:11 Dose: 125 mg Documented by: Montelukast Sodium (Singulair) 10 mg PO QHS [facility] Last Admin: 10/14/19 22:25 Dose: 10 mg Documented by: Ondansetron HCl (Zofran) 4 mg IV Q8H PRN PRN Reason: Nausea And Vomiting Oxycodone/Acetaminophen (Percocet 5/325) 1 tab PO Q6H PRN PRN Reason: Pain, Moderate (4-6) Pravastatin Sodium (Pravachol) 40 mg PO QHS [facility] Last Admin: 10/14/19 22:24 Dose: 40 mg Documented by: Sodium Chloride (Sodium Chloride Flush Syringe 10 Ml) 10 ml IV BID [facility] Last Admin: 10/15/19 12:33 Dose: 10 ml Documented by: Sodium Chloride (Sodium Chloride Flush Syringe 10 Ml) 10 ml IV PRN PRN PRN Reason: LINE FLUSH Review of Systems All systems: negative Physical Examination Vital signs: Vital Signs Temp Pulse Resp BP Pulse Ox 98.3 F 76 150 H 151/81 93 10/14/19 09:53 10/14/19 09:53 10/14/19 09:53 10/14/19 09:53 10/14/19 09:53 General appearance: no acute distress, alert Eyes: non-icteric ENT: oropharynx moist Neck: supple, no JVD Effort: normal Ascultation: Bilateral: wheezes Percussion: Bilateral: not dull Tactile fremitus: Bilateral: normal Cardiovascular: regular rate and rhythm Gastrointestinal: normoactive bowel sounds, soft, non-distended Integumentary: normal Extremities: no cyanosis, no edema Gait: normal gait, normal posture normal mental status, non-focal exam mood appropriate, anxious Results - Laboratory Findings CBC and BMP: 10/14/19 11:48 10/14/19 11:48 PT/INR, D-dimer PT 13.0 Sec. (12.2-14.9) 10/14/19 11:48 INR 0.97 (0.87-1.13) 10/14/19 11:48 Abnormal lab findings: Abnormal Labs 10/14/19 10/14/19 10/14/19 11:48 11:48 17:59 Hct 43.0 H [place] % (Auto) 7.7 H Eos % (Auto) 4.5 H Eos # 0.5 H BUN 22 H Glucose 134 H POC Glucose 158 H Hemoglobin A1c 10/14/19 10/15/19 10/15/19 22:10 08:16 08:32 Hct [place] % (Auto) Eos % (Auto) Eos # BUN Glucose POC Glucose 236 H 198 H Hemoglobin A1c 6.8 H - Diagnostic Findings Chest x-ray: image reviewed CT scan - chest: image reviewed Assessment and Plan 64 y/o female with dyspnea and abnormal CXR/CT 1. Decrease steroids 2. Will speak with GIOP about possiblity of bronch on Tuesday. 3. abx per primary team
[2019-10-15] MEDS: guaiFENesin DM 200/20 MG ORAL LIQD 10 ML PO PRN (18:51)
[2019-10-15] MEDS: AZITHROMYCIN 500 MG in SODIUM CHLORIDE 0.9% 250ML 250 ML IV SCH (20:59)
[2019-10-15] MEDS: cefTRIAXone/NS 2 GM/100 ML 2 GM/100 ML BAG IV SCH (21:01)
[2019-10-15] MEDS: DOCUSATE SODIUM 100 MG/10 ML ORAL LIQD PO SCH (23:30)
[2019-10-15] MEDS: MONTELUKAST 10 MG TAB PO SCH (23:30)
[2019-10-15] MEDS: INSULIN GLARGINE 100 UNITS/ML SUB-Q SCH (23:32)
[2019-10-15] MEDS: PRAVASTATIN 40 MG TAB PO SCH (23:33)
[2019-10-15] MEDS: SENNOSIDES 8.6 MG TAB PO SCH (23:34)
[2019-10-15] MEDS: MELATONIN 5 MG TAB PO SCH (23:35)
[2019-10-16] MEDS: IPRATROPIUM/ALBUTEROL SULFATE 3 ML AMPUL.NEB IH SCH ×4 (03:52→20:06)
[2019-10-16] MEDS: methylPREDNISolone Sod Succinate 125 MG/2 ML INJ IV SCH ×3 (06:34→18:58)
[2019-10-16] MEDS: BUDESONIDE 0.5 MG/2 ML NEBU IH SCH ×2 (07:46→20:06)
[2019-10-16] MEDS: ARFORMOTEROL 15 MCG/2 ML NEBU IH SCH ×2 (07:46→20:08)
--- NOTE | 2019-10-16 08:23 | Progress Note ---
Assessment and Plan 64 y/o female with dyspnea and abnormal CXR/CT 1. Continue steroids 2. Bronch tomorrow at 0800, NPO after midnight 3. Will check Coags today 4. Abx per primary team. Subjective Date of service: 10/16/19 Interval history: No acute events. Spoke with GI and she can be done at 0800 tomorrow. Objective Vital Signs - 12hr 10/15/19 10/15/19 10/15/19 20:27 20:29 21:17 Temperature 98.3 F Pulse Rate Pulse Rate [ 85 Anterior Bilateral Throughout] Respiratory 20 Rate Respiratory 18 Rate [Anterior Bilateral Throughout] Blood Pressure 143/71 O2 Sat by Pulse 96 Oximetry 10/16/19 10/16/19 10/16/19 03:53 04:23 07:53 Temperature 98.7 F Pulse Rate 85 Pulse Rate [ 67 85 Anterior Bilateral Throughout] Respiratory 20 Rate Respiratory 18 20 Rate [Anterior Bilateral Throughout] Blood Pressure 98/53 O2 Sat by Pulse 93 93 Oximetry Constitutional: no acute distress, alert Eyes: non-icteric ENT: oropharynx moist Neck: supple, no JVD Effort: normal Ascultation: Bilateral: wheezes Percussion: Bilateral: not dull Tactile fremitus: Bilateral: normal Cardiovascular: regular rate and rhythm Gastrointestinal: normoactive bowel sounds, soft, non-distended Integumentary: normal Extremities: no cyanosis, no edema Neurologic: normal mental status, non-focal exam Psychiatric: mood appropriate, anxious CBC and BMP: 10/14/19 11:48 10/14/19 11:48 ABG, PT/INR, D-dimer: PT/INR, D-dimer PT 13.0 Sec. (12.2-14.9) 10/14/19 11:48 INR 0.97 (0.87-1.13) 10/14/19 11:48 Abnormal lab findings: Abnormal Labs 10/14/19 10/14/19 10/14/19 11:48 11:48 17:59 Hct 43.0 H [place] % (Auto) 7.7 H Eos % (Auto) 4.5 H Eos # 0.5 H BUN 22 H Glucose 134 H POC Glucose 158 H Hemoglobin A1c 10/14/19 10/15/19 10/15/19 22:10 08:16 08:32 Hct [place] % (Auto) Eos % (Auto) Eos # BUN Glucose POC Glucose 236 H 198 H Hemoglobin A1c 6.8 H 10/15/19 10/16/19 17:14 07:40 Hct [place] % (Auto) Eos % (Auto) Eos # BUN Glucose POC Glucose 268 H 206 H Hemoglobin A1c
[2019-10-16] MEDS: INSULIN LISPRO 100 UNIT/ML SUB-Q SCH ×7 (08:41→21:50)
[2019-10-16] MEDS: CHOLECALCIFEROL (VIT D3) 1000 UNIT (25 mcg) TAB PO SCH (10:29)
[2019-10-16] MEDS: hydroCHLOROthiazide 25 MG TAB PO SCH (10:29)
[2019-10-16] MEDS: CYANOCOBALAMIN (VIT B-12) 100 MCG TAB PO SCH (10:29)
[2019-10-16] MEDS: FAMOTIDINE 20 MG TAB PO SCH ×2 (10:29→21:50)
[2019-10-16] MEDS: ASPIRIN 81 MG TAB CHEW PO SCH (10:29)
[2019-10-16] MEDS: GABAPENTIN 400 MG CAP PO SCH ×2 (10:30→21:50)
[2019-10-16] MEDS: ASCORBIC ACID 500 MG TAB PO SCH (10:30)
[2019-10-16] MEDS: DOCUSATE SODIUM 100 MG/10 ML ORAL LIQD PO SCH ×2 (10:31→21:49)
[2019-10-16 10:32] LABS: INR 1.02 (0.87-1.13)
[2019-10-16 10:33] LABS: Partial Thromboplastin Time 25.2 Sec. (24.2-36.6)
[2019-10-16] MEDS: guaiFENesin DM 200/20 MG ORAL LIQD 10 ML PO PRN (10:40)
[2019-10-16] MEDS: metFORMIN 500 MG TAB PO SCH ×2 (10:41→18:56)
[2019-10-16] MEDS: amLODIPine 10 MG TAB PO SCH (13:02)
--- NOTE | 2019-10-16 15:02 | Anesthesia Consultation ---
Anesthesia Consult and Med Hx Date of service: 10/16/19 - Airway Anesthetic Teeth Evaluation: Poor (multiple missing, chipped teeth), Chipped (upper front) ROM Head & Neck: Adequate Mental/Hyoid Distance: Adequate Mallampati Class: Class II Intubation Access Assessment: Probably Good - Pre-Operative Health Status ASA Pre-Surgery Classification: ASA3 Proposed Anesthetic Plan: MAC - Pulmonary Hx Smoking: Yes Hx Asthma: No SOB: Yes COPD: Yes Home Oxygen Therapy: No (on nasal canula in the hospital) Hx Pneumonia: Yes (recent pnemonia) - Cardiovascular System Hx Hypertension: Yes - Central Nervous System Hx Neuromuscular Disorder: Yes (peripheral neuropathy) Hx Back Pain: Yes (rheumatoid arthritis) Hx Psychiatric Problems: Yes (sleep disorder) - Endocrine Hx Non-Insulin Dependent Diabetes: Yes - Hematic Hx Anemia: No - Other Systems Hx Substance Use: Yes (used cocaine for 20 years, quit 20 years ago)
--- NOTE | 2019-10-16 16:10 | Progress Note ---
Assessment and Plan Assessment and plan: 64-year-old female with history of insulin-dependent diabetes, hypertension, hyperlipidemia and COPD comes in for increasing shortness of breath and wheezing for the last 1 week. Not responding to nebulizer treatments at home. Not on any steroids at home and not on any antibiotics at home cough productive of mucoid sputum. Patient was then [facility] at the beginning of August and was discharged. No fever. Intermittent shortness of breath and wheezing. No exacerbating or relieving factors. No chest pain. No recent travel. CXR IMPRESSION: 1. Right middle lobe atelectasis-consolidation, endobronchial obstructing lesion should be considered 2. Bronchiectasis right middle lobe and both lower lobes 3. Thyroid goiter 4. Extensive degenerative changes thoracic spine Bronchoscopy tomorrow; --Possible Endobronchial lesions: Continue oxygen titrate O2 sats to more than 90% Pulmonary following, bronchoscopy tomorrow, possible biopsy, BAL --Acute Respiratory failure multifactorial Probably secondary to pneumonia vs COPD exacerbation vs Endobronchial lesions --Acute COPD Exacerbation; Oxygen titrate O2 sats to more than 90% Nebulizers, IV steroids, IV antibiotics, inhalation steroids --Hypertension; moderate control Continue current antihypertensives and PRN medications --Type II diabetes Mellitus; Accu-Cheks, sliding scale coverage, ADA diet, insulin as needed --Hyperlipidemia; statin Low-cholesterol diet --Peripheral Neuropathy; Gabapentin, supportive care --GERD; Protonix --DVT prophylaxis SCDs No pharmacologic anticoagulation pending bronchoscopy Closely monitor the patient and adjust the management as needed Plan of care reviewed with the patient, her nurse and the case management History Interval history: Patient seen and examined medical records reviewed Patient complains of mild shortness of breath and cough Patient is scheduled for bronchoscopy tomorrow Patient is alert and awake in mild distress Vital signs reviewed Hospitalist Physical - Constitutional Vitals: Temp Pulse Resp BP Pulse Ox 98.7 F 75 18 125/70 94 10/16/19 11:42 10/16/19 13:53 10/16/19 13:53 10/16/19 11:42 10/16/19 11:42 General appearance: Present: mild distress, well-nourished - EENT Eyes: Present: PERRL, EOM intact - Neck Neck: Present: supple, normal ROM - Respiratory Respiratory effort: labored Respiratory: bilateral: diminished, rhonchi, negative: rales, wheezing - Cardiovascular Rhythm: regular Heart Sounds: Present: S1 & S2 - Extremities Extremities: no ischemia, No edema - Abdominal General gastrointestinal: soft, non-tender, non-distended, normal bowel sounds - Integumentary Integumentary: Present: clear, warm - Psychiatric Psychiatric: appropriate mood/affect - Neurologic Neurologic: moves all extremities Results - Labs CBC & Chem 7: 10/14/19 11:48 10/14/19 11:48 Labs: Laboratory Last Values WBC 10.7 K/mm3 (4.5-11.0) 10/14/19 11:48 RBC 4.90 M/mm3 (3.65-5.03) 10/14/19 11:48 Hgb 13.9 gm/dl (10.1-14.3) 10/14/19 11:48 Hct 43.0 % (30.3-42.9) H 10/14/19 11:48 MCV 88 fl (79-97) 10/14/19 11:48 MCH 29 pg (28-32) 10/14/19 11:48 MCHC 32 % (30-34) 10/14/19 11:48 RDW 14.9 % (13.2-15.2) 10/14/19 11:48 Plt Count 243 K/mm3 (140-440) 10/14/19 11:48 Lymph % (Auto) 20.4 % (13.4-35.0) 10/14/19 11:48 [place] % (Auto) 7.7 % (0.0-7.3) H 10/14/19 11:48 Eos % (Auto) 4.5 % (0.0-4.3) H 10/14/19 11:48 Baso % (Auto) 0.6 % (0.0-1.8) 10/14/19 11:48 Lymph # 2.2 K/mm3 (1.2-5.4) 10/14/19 11:48 [place] # 0.8 K/mm3 (0.0-0.8) 10/14/19 11:48 Eos # 0.5 K/mm3 (0.0-0.4) H 10/14/19 11:48 Baso # 0.1 K/mm3 (0.0-0.1) 10/14/19 11:48 Seg Neutrophils % 66.8 % (40.0-70.0) 10/14/19 11:48 Seg Neutrophils # 7.2 K/mm3 (1.8-7.7) 10/14/19 11:48 PT 13.5 Sec. (12.2-14.9) 10/16/19 09:45 INR 1.02 (0.87-1.13) 10/16/19 09:45 APTT 25.2 Sec. (24.2-36.6) 10/16/19 09:45 Sodium 139 mmol/L (137-145) 10/14/19 11:48 Potassium 3.9 mmol/L (3.6-5.0) 10/14/19 11:48 Chloride 99.5 mmol/L (98-107) 10/14/19 11:48 Carbon Dioxide 24 mmol/L (22-30) 10/14/19 11:48 Anion Gap 19 mmol/L 10/14/19 11:48 BUN 22 mg/dL (7-17) H 10/14/19 11:48 Creatinine 1.0 mg/dL (0.7-1.2) 10/14/19 11:48 Estimated GFR > 60 ml/min 10/14/19 11:48 BUN/Creatinine Ratio 22 % 10/14/19 11:48 Glucose 134 mg/dL (65-100) H 10/14/19 11:48 POC Glucose 182 (70-105) H 10/16/19 11:13 Hemoglobin A1c 6.8 % (4-6) H 10/15/19 08:32 Lactic Acid 1.50 mmol/L (0.7-2.0) 10/14/19 11:48 Calcium 9.9 mg/dL (8.4-10.2) 10/14/19 11:48 Total Bilirubin 0.70 mg/dL (0.1-1.2) 10/14/19 11:48 Direct Bilirubin < 0.2 mg/dL (0-0.2) 10/14/19 11:48 AST 27 units/L (5-40) 10/14/19 11:48 ALT 25 units/L (7-56) 10/14/19 11:48 Alkaline Phosphatase 56 units/L (35-129) 10/14/19 11:48 Troponin T < 0.010 ng/mL (0.00-0.029) 10/14/19 11:48 NT-Pro-B Natriuret Pep 123.0 pg/mL (0-900) 10/14/19 11:48 Total Protein 7.7 g/dL (6.3-8.2) 10/14/19 11:48 Albumin 4.8 g/dL (3.9-5) 10/14/19 11:48 Albumin/Globulin Ratio 1.7 % 10/14/19 11:48 Urine Color Yellow (Yellow) 10/14/19 16:22 Urine Turbidity Clear (Clear) 10/14/19 16:22 Urine pH 5.0 (5.0-7.0) 10/14/19 16:22 Ur Specific [place] 1.015 (1.003-1.030) 10/14/19 16:22 Urine Protein <15 mg/dl mg/dL (Negative) 10/14/19 16:22 Urine Glucose (UA) >=500 mg/dL (Negative) 10/14/19 16:22 Urine Ketones Neg mg/dL (Negative) 10/14/19 16:22 Urine Blood Neg (Negative) 10/14/19 16:22 Urine Nitrite Neg (Negative) 10/14/19 16:22 Urine Bilirubin Neg (Negative) 10/14/19 16:22 Urine Urobilinogen < 2.0 mg/dL (<2.0) 10/14/19 16:22 Ur Leukocyte Esterase Neg (Negative) 10/14/19 16:22 Urine WBC (Auto) 1.0 /HPF (0.0-6.0) 10/14/19 16:22 Urine RBC (Auto) 2.0 /HPF (0.0-6.0) 10/14/19 16:22 U Epithel Cells (Auto) 5.0 /HPF (0-13.0) 10/14/19 16:22 Urine Mucus Few /HPF 10/14/19 16:22 Active Medications - Current Medications Current Medications: Generic Name Dose Route Start Last Admin Trade Name Freq PRN Reason Stop Dose Admin Acetaminophen 650 mg 10/14/19 18:21 Tylenol PO Q4H PRN Pain MILD(1-3)/Fever >100.5/WARD Albuterol 2.5 mg 10/14/19 17:42 Proventil IH Q4H PRN Wheezing Albuterol/Ipratropium 1 ampul 10/14/19 20:00 10/16/19 13:36 Duoneb *Not For Prn Use* IH 1 ampul Q6HRT ESTEVAN Administration Albuterol/Ipratropium 1 ampul 10/14/19 18:24 Duoneb *Not For Prn Use* IH Q3H PRN Wheezing Amlodipine Besylate 10 mg 10/14/19 18:00 10/16/19 13:02 Amlodipine PO 10 mg DAILY ESTEVAN Administration Arformoterol Tartrate 15 mcg 10/14/19 20:00 10/16/19 07:46 Brovana Nebu IH 15 mcg Q12HRT ESTEVAN Administration Ascorbic Acid 500 mg 10/15/19 10:00 10/16/19 10:30 Vitamin C PO 500 mg QDAY ESTEVAN Administration Aspirin 81 mg 10/15/19 10:00 10/16/19 10:29 Baby Aspirin PO 81 mg QDAY ESTEVAN Administration Budesonide 0.5 mg 10/14/19 20:00 10/16/19 07:46 Pulmicort IH 0.5 mg Q12HRT ESTEVAN Administration Cholecalciferol 1,000 unit 10/15/19 10:00 10/16/19 10:29 Vitamin D3 PO 1,000 unit DAILY ESTEVAN Administration Cyanocobalamin 100 mcg 10/15/19 10:00 10/16/19 10:29 Vitamin B-12 PO 100 mcg QDAY ESTEVAN Administration Docusate Sodium 100 mg 10/15/19 22:00 10/16/19 10:31 Colace PO 100 mg BID ESTEVAN Administration Famotidine 20 mg 10/14/19 22:00 10/16/19 10:29 Pepcid PO 20 mg BID ESTEVAN Administration Fluticasone Propionate 100 mcg 10/15/19 10:00 10/15/19 09:51 Flonase NS Not Given QDAY ESTEVAN Gabapentin 800 mg 10/14/19 22:00 10/16/19 10:30 Gabapentin PO 800 mg BID ESTEVAN Administration Guaifenesin 20 ml 10/15/19 18:21 10/16/19 10:40 Guaifenesin Dm Syrup PO 20 ml Q4H PRN Administration Cough Hydrochlorothiazide 25 mg 10/14/19 18:00 10/16/19 10:29 Hctz PO 25 mg QDAY ESTEVAN Administration Ceftriaxone Sodium 2 gm in 100 mls @ 200 mls/hr 10/14/19 19:30 10/15/19 21:01 Rocephin/Ns 2 Gm/100 Ml IV 100 mls/hr Q24H ESTEVAN Administration Protocol Azithromycin 500 mg/ Sodium 250 mls @ 250 mls/hr 10/14/19 20:00 10/15/19 20:59 Chloride IV 10/18/19 20:59 250 mls/hr Q24H ESTEVAN Administration Protocol Insulin Glargine 18 units 10/15/19 22:00 10/15/19 23:32 Lantus SUB-Q 18 units QHS ESTEVAN Administration Insulin Human Lispro 0 unit 10/14/19 22:00 10/16/19 13:02 Humalog SUB-Q 3 unit ACHS ESTEVAN Administration Protocol Insulin Human Lispro 5 unit 10/15/19 07:30 10/16/19 13:03 Humalog SUB-Q 5 unit AC ESTEVAN Administration Melatonin 10 mg 10/14/19 22:00 10/15/19 23:35 Melatonin PO 10 mg QHS ESTEVAN Administration Metformin HCl 500 mg 10/14/19 18:00 10/16/19 10:41 Glucophage PO 500 mg BIDDIAB ESTEVAN Administration Methylprednisolone Sodium Succinate 60 mg 10/15/19 19:00 10/16/19 13:02 Solu-Medrol IV 60 mg Q6HR ESTEVAN Administration Montelukast Sodium 10 mg 10/14/19 22:00 10/15/19 23:30 Singulair PO 10 mg QHS ESTEVAN Administration Ondansetron HCl 4 mg 10/14/19 18:21 Zofran IV Q8H PRN Nausea And Vomiting Pravastatin Sodium 40 mg 10/14/19 22:00 10/15/19 23:33 Pravachol PO 40 mg QHS ESTEVAN Administration Senna 17.2 mg 10/15/19 22:00 10/15/19 23:34 Senokot PO 17.2 mg QHS ESTEVAN Administration Sodium Chloride 10 ml 10/14/19 22:00 10/16/19 10:32 Sodium Chloride Flush Syringe 10 Ml IV 10 ml BID ESTEVAN Administration Sodium Chloride 10 ml 10/14/19 18:21 Sodium Chloride Flush Syringe 10 Ml IV PRN PRN LINE FLUSH
[2019-10-16] MEDS: FLUTICASONE PROPIONATE NASAL SPRAY 16 GM NS SCH (16:49)
[2019-10-16] MEDS: cefTRIAXone/NS 2 GM/100 ML 2 GM/100 ML BAG IV SCH (20:28)
[2019-10-16] MEDS: AZITHROMYCIN 500 MG in SODIUM CHLORIDE 0.9% 250ML 250 ML IV SCH (21:47)
[2019-10-16] MEDS: MELATONIN 5 MG TAB PO SCH (21:49)
[2019-10-16] MEDS: MONTELUKAST 10 MG TAB PO SCH (21:50)
[2019-10-16] MEDS: SENNOSIDES 8.6 MG TAB PO SCH (21:50)
[2019-10-16] MEDS: PRAVASTATIN 40 MG TAB PO SCH (21:50)
[2019-10-16] MEDS: INSULIN GLARGINE 100 UNITS/ML SUB-Q SCH (21:52)
[2019-10-17] MEDS: methylPREDNISolone Sod Succinate 125 MG/2 ML INJ IV SCH ×3 (00:28→13:12)
[2019-10-17] MEDS: IPRATROPIUM/ALBUTEROL SULFATE 3 ML AMPUL.NEB IH SCH ×3 (02:04→15:59)
[2019-10-17] MEDS ORDERED: SODIUM CHLORIDE 0.9% 1000 ML 1,000 ML IV SCH (07:00)
[2019-10-17] MEDS: INSULIN LISPRO 100 UNIT/ML SUB-Q SCH ×4 (07:30→11:30)
[2019-10-17] MEDS ORDERED: propofoL 200 MG/20 ML VIAL IV ONE (07:49)
[2019-10-17] MEDS ORDERED: fentaNYL 100 MCG/2 ML INJ ONE (07:50)
[2019-10-17] MEDS ORDERED: LIDOCAINE MPF (2%) 20 MG/1 ML VIAL 5 ML ONE (07:54)
[2019-10-17] MEDS ORDERED: LIDOCAINE VISCOUS 2% 15 ML ORAL LIQD ONE (07:57)
[2019-10-17] MEDS ORDERED: BENZOCAINE 20% TOP SPRAY 0.5 ML UNIT DOSE MM ONE (07:57)
[2019-10-17] MEDS ORDERED: LIDOCAINE (2%) 20 MG/1 ML VIAL 20 ML MDV INFILTRATI ONE (07:57)
[2019-10-17] MEDS ORDERED: KETAMINE/STERILE WATER 50 MG/ML SYRINGE ONE (08:03)
[2019-10-17] MEDS: BUDESONIDE 0.5 MG/2 ML NEBU IH SCH (08:42)
[2019-10-17] MEDS: ARFORMOTEROL 15 MCG/2 ML NEBU IH SCH (08:42)
--- NOTE | 2019-10-17 09:11 | Procedure Note ---
Date of procedure: 10/17/19 Pre-op diagnosis: Pneumonia Post-op diagnosis: same Procedure: Flexible bronchoscopy with bronchial washing and airway inspection patient taken to [facility] and prepped. Anesthesia present and providing sedation. Scope passed through right nare without difficulty. Vocal cards seen and visualized. Good ABD and AD duction. Scope passed without difficulty into trachea. Arelis seen an normal. Thick secretions seen in right main stem and some in left main. After lidocaine was used on both sides, scope passed into right mainstem and bronchial washing taken from Right Middle lobe. Thick copious yellow and white secretions removed with aggressive saline flushing and suctioning. one large plug had to be removed by retracting the entire scope. Once sample obtained, then trap removed and secretions removed from right upper and right lower lobes. All airways were patent with no endobronchial lesions present. Left had minimal secretions but these were removed as well and all airways were patent with no endobronchial lesions seen. Scope removed and patient recovered. No immediate complications noted. Anesthesia: MAC Surgeon: SANTHOSH MURRAY Estimated blood loss: none Pathology: list (Right Middle lobe washing) Specimen disposition: to lab Condition: stable Disposition: floor
--- NOTE | 2019-10-17 09:15 | Progress Note ---
Assessment and Plan 64 y/o female with dyspnea and abnormal CXR/CT 1. Can switch to PO prednisone 60 daily and taper over 2 weeks time to off. Suggest 60, then 40 then 20 in 4 day increments. 2. Normally sees Isidro but asked to see me, will arrange follow up in the next 7-10 days. 3. Can change to PO abx suggest levaquin and treat for a total of 10 days. 4. Bronch results will likely be back in 2-4 days, she can get these results in the office 5. No objection to discharge. 6. Smoking cessation Subjective Date of service: 10/17/19 Interval history: No acute events. Stable and ready for bronch. Coags normal Objective Vital Signs - 12hr 10/16/19 10/16/19 10/17/19 21:17 22:00 04:17 Temperature 97.6 F 97.7 F Pulse Rate 96 H 68 Respiratory 20 18 20 Rate Blood Pressure 111/59 101/55 O2 Sat by Pulse 97 96 Oximetry 10/17/19 10/17/19 07:27 07:29 Temperature 97.7 F 97.7 F Pulse Rate 78 78 Respiratory 16 16 Rate Blood Pressure 117/64 117/64 O2 Sat by Pulse 96 96 Oximetry Constitutional: no acute distress, alert Eyes: non-icteric ENT: oropharynx moist Neck: supple, no JVD Effort: normal Ascultation: Bilateral: wheezes Percussion: Bilateral: not dull Tactile fremitus: Bilateral: normal Cardiovascular: regular rate and rhythm Gastrointestinal: normoactive bowel sounds, soft, non-distended Integumentary: normal Extremities: no cyanosis, no edema Neurologic: normal mental status, non-focal exam Psychiatric: mood appropriate, anxious CBC and BMP: 10/14/19 11:48 10/14/19 11:48 ABG, PT/INR, D-dimer: PT/INR, D-dimer PT 13.5 Sec. (12.2-14.9) 10/16/19 09:45 INR 1.02 (0.87-1.13) 10/16/19 09:45 Abnormal lab findings: Abnormal Labs 10/14/19 10/14/19 10/14/19 11:48 11:48 17:59 Hct 43.0 H [place] % (Auto) 7.7 H Eos % (Auto) 4.5 H Eos # 0.5 H BUN 22 H Glucose 134 H POC Glucose 158 H Hemoglobin A1c 10/14/19 10/15/19 10/15/19 22:10 08:16 08:32 Hct [place] % (Auto) Eos % (Auto) Eos # BUN Glucose POC Glucose 236 H 198 H Hemoglobin A1c 6.8 H 10/15/19 10/16/19 10/16/19 17:14 07:40 11:13 Hct [place] % (Auto) Eos % (Auto) Eos # BUN Glucose POC Glucose 268 H 206 H 182 H Hemoglobin A1c 10/16/19 10/16/19 16:36 21:29 Hct [place] % (Auto) Eos % (Auto) Eos # BUN Glucose POC Glucose 197 H 197 H Hemoglobin A1c
[2019-10-17] MEDS: metFORMIN 500 MG TAB PO SCH (12:42)
[2019-10-17 12:56] VITALS: BP 133/68
[2019-10-17] MEDS: FLUTICASONE PROPIONATE NASAL SPRAY 16 GM NS SCH (13:15)
[2019-10-17] MEDS: CHOLECALCIFEROL (VIT D3) 1000 UNIT (25 mcg) TAB PO SCH (13:15)
[2019-10-17] MEDS: GABAPENTIN 400 MG CAP PO SCH (13:16)
[2019-10-17] MEDS: CYANOCOBALAMIN (VIT B-12) 100 MCG TAB PO SCH (13:16)
[2019-10-17] MEDS: ASCORBIC ACID 500 MG TAB PO SCH (13:17)
[2019-10-17] MEDS: DOCUSATE SODIUM 100 MG/10 ML ORAL LIQD PO SCH (13:17)
[2019-10-17] MEDS: FAMOTIDINE 20 MG TAB PO SCH (13:18)
[2019-10-17] MEDS: ASPIRIN 81 MG TAB CHEW PO SCH (13:18)
--- NOTE | 2019-10-17 13:34 | Post Anesthesia Evaluation ---
- Post Anesthesia Evaluation Patient Participated: Yes Airway Patent: Yes Stable Respiratory Function: Yes Nausea/Vomiting: No Temp > 96.8F: Yes Pain Manageable: Yes Adequeate Hydration: Yes Anesthesia Complications: No Block Receding Appropriately: Not Applicable Patient on Ventilator: No
[2019-10-17] MEDS: amLODIPine 10 MG TAB PO SCH (13:44)
[2019-10-17] MEDS: hydroCHLOROthiazide 25 MG TAB PO SCH (13:45)
--- NOTE | 2019-10-17 14:09 | Discharge Summary ---
Providers - Providers Date of Admission: 10/16/19 16:11 Date of discharge: 10/17/19 Attending physician: PEPPER ORTIZ 10/14/19 18:22 Consult to Physician [CONS] Routine Comment: Consulting Provider: SANTHOSH MURRAY Physician Instructions: Reason For Exam: COPD exacerbation Primary care physician: [employer] Hospitalization Condition: Stable Disposition: DC-01 TO HOME OR SELFCARE Time spent for discharge: 34 min Core Measure Documentation - Palliative Care Palliative Care/ Comfort Measures: Not Applicable - Core Measures Any of the following diagnoses?: none Exam - Constitutional Vitals: Temp Pulse Resp BP Pulse Ox 98.6 F 76 18 133/68 92 10/17/19 11:58 10/17/19 11:58 10/17/19 11:58 10/17/19 13:44 10/17/19 11:58 General appearance: Present: no acute distress, well-nourished - EENT Eyes: Present: PERRL, EOM intact - Neck Neck: Present: supple, normal ROM - Respiratory Respiratory effort: normal Respiratory: bilateral: diminished, negative: rales, rhonchi, wheezing - Cardiovascular Rhythm: regular Heart Sounds: Present: S1 & S2 - Extremities Extremities: no ischemia, No edema - Abdominal General gastrointestinal: Present: soft, non-tender, non-distended, normal bowel sounds - Integumentary Integumentary: Present: clear, warm - Musculoskeletal Musculoskeletal: strength equal bilaterally - Psychiatric Psychiatric: appropriate mood/affect, cooperative - Neurologic Neurologic: CNII-XII intact, moves all extremities Plan Activity: advance as tolerated Diet: diabetic Special Instructions: smoking cessation Additional Instructions: Advised smoking cessation. Follow-up with pulmonary ,Dr. Murray will discuss the bronchoscopy results Follow up with: DOMINGA ARRIAGA MD [Primary Care Provider] - 3-5 Days SANTHOSH MURRAY MD [Staff Physician] - 10 Days Prescriptions: amLODIPine 1 tab PO DAILY #30 predniSONE [Deltasone] 10 mg PO DAILY #52 tablet Ipratropium/Albuterol Sulfate [DUONEB *Not for PRN Use*] 1 ampul IH Q6HR #60 ampul.neb Fluticasone [Flonase] 100 mcg NS QDAY #1 bottle guaiFENesin DM [Guaifenesin Dm Syrup] 20 ml PO Q4H PRN #1 bottle PRN Reason: Cough Insulin Glargine [Lantus VIAL] 18 units SUB-Q QHS #2 vial levoFLOXacin [Levaquin] 750 mg PO QDAY #7 tablet metFORMIN 1 tab PO BID #60 Montelukast [Singulair] 10 mg PO QHS #30 tablet
== END 2019-10-17 16:00 | disposition home or self-care (01) | DRG 193 ==
LOC: ED 09:50 → 3A 13:24 → OBSVTOIN 10-16 16:11
PROVIDERS: ADMIT Internal Medicine; ATTEND Internal Medicine
PROC: 0B9D8ZZ Drainage of Right Middle Lung Lobe, Via Natural or Artificial Opening Endoscopic (ICD-10-PCS; principal; 2019-10-17)
PROC: 0B9G8ZZ Drainage of Left Upper Lung Lobe, Via Natural or Artificial Opening Endoscopic (ICD-10-PCS; 2019-10-17)
PROC: 0B9C8ZZ Drainage of Right Upper Lung Lobe, Via Natural or Artificial Opening Endoscopic (ICD-10-PCS; 2019-10-17)
PROC: 0BJ08ZZ Inspection of Tracheobronchial Tree, Via Natural or Artificial Opening Endoscopic (ICD-10-PCS; 2019-10-17)
DX: J18.9 Pneumonia, unspecified organism (principal); J96.01 Acute respiratory failure with hypoxia; J98.11 Atelectasis; J44.1 Chronic obstructive pulmonary disease with (acute) exacerbation; I10 Essential (primary) hypertension; M19.90 Unspecified osteoarthritis, unspecified site; E78.5 Hyperlipidemia, unspecified; K21.9 Gastro-esophageal reflux disease without esophagitis; E11.42 Type 2 diabetes mellitus with diabetic polyneuropathy; F41.9 Anxiety disorder, unspecified; F17.210 Nicotine dependence, cigarettes, uncomplicated; Z82.49 Family history of ischemic heart disease and other diseases of the circulatory system; Z79.4 Long term (current) use of insulin; Z71.6 Tobacco abuse counseling
CPT/HCPCS: 36415; 71046; 71250; 80048; 80076; 81001; 82140; 82962; 83036; 83880; 84484; 85025; 85610; 85730; 87040; 87116; 88112; 88305; 88342; 93005; 93010; 94640; 94644; 94760; G0378; A9270-GY; J0456; J0696; J1815; J1956; J2704; J2930; J3010; J3475; J7030; J7050